=== PATIENT | male | born 1935 | race American Indian/Alaskan Native ===

== ENCOUNTER 2017-10-04 10:46 | Day surgery (SDC) | payer MEDICARE ==
[2017-10-04] MEDS ORDERED: ANCEF/STERILE WATER 2 GM/20 ML 2 GM/20 ML SYRINGE IV NR (11:00)
[2017-10-04] MEDS ORDERED: NEOSPORIN GU IR ONE (11:52)
[2017-10-04] MEDS ORDERED: METHYLENE BLUE ONE (11:52)
--- NOTE | 2017-10-04 12:13 | Anesthesia Consultation ---
Anesthesia Consult and Med Hx Date of service: 10/04/17 - Airway Anesthetic Teeth Evaluation: Poor ROM Head & Neck: Adequate Mental/Hyoid Distance: Adequate Mallampati Class: Class II Intubation Access Assessment: Probably Good - Pulmonary Exam CTA: Yes - Cardiac Exam Cardiac Exam: RRR - Pre-Operative Health Status ASA Pre-Surgery Classification: ASA3 Proposed Anesthetic Plan: General - Pulmonary Hx Smoking: Yes (OCC LIGHT SMOKER) Hx Sleep Apnea: No (VERONICA PRE SCREEN LOW RISK) - Cardiovascular System Hx Hypertension: No - Central Nervous System Hx Seizures: Yes (DAILY MEDS-UNKNOWN DATE OF LAST SEIZURE) Hx Psychiatric Problems: Yes - Hematic Hx Anemia: Yes - Other Systems Hx Cancer: No
--- NOTE | 2017-10-04 12:14 | Anesthesia Day of Surgery ---
Anesthesia Day of Surgery - Day of Surgery Patient Examined: Yes Patient H&P Reviewed: Yes Patient is NPO: Yes
[2017-10-04] MEDS ORDERED: NACL BACTERIOSTATIC INFILTRATI ONE (12:43)
[2017-10-04] MEDS ORDERED: NACL 0.9% 1000 ML 1,000 ML IV SCH (13:00)
[2017-10-04] MEDS ORDERED: TRIPLE ANTIBIOTIC TP ONE ×2 (13:29→15:16)
[2017-10-04] MEDS ORDERED: XYLOCAINE 1% 20 mL ONE (13:50)
[2017-10-04] MEDS ORDERED: MARCAINE 0.5% 0 ML INFILTRATI ONE (13:50)
[2017-10-04] MEDS ORDERED: DIPRIVAN 10 MG/ML IV ONE ×2 (13:52→14:32)
[2017-10-04] MEDS ORDERED: XYLOCAINE MPF 2% ONE (13:52)
[2017-10-04] MEDS ORDERED: WATER FOR IRRIG STERILE IR ONE ×2 (15:16→15:17)
[2017-10-04 16:48] VITALS: BP 172/76
--- NOTE | 2017-10-04 20:40 | Operative Report ---
PREOPERATIVE DIAGNOSES: Urinary retention, neurogenic bladder. POSTOPERATIVE DIAGNOSES: Urinary retention, neurogenic bladder. PROCEDURE: Cystoscopy, insertion of suprapubic cystostomy. SURGEON: Ritchie Humphries MD ANESTHESIA: General. FINDINGS: This is a gentleman with chronic retention. He is weak. He has a neurogenic bladder. He is 82. He now presents for suprapubic tube. All the risks and complications were discussed. DESCRIPTION OF PROCEDURE: The patient was brought to the operating room and placed on the operating table. Following induction of mild sedation and mild anesthesia, placed in lithotomy position, prepped and draped in usual sterile fashion. He was placed in mild Trendelenburg. Cystoscopy showed a wide open bladder neck. The Lows[place] was palpated right at the level of pubic symphysis below an incision. We were right on the skin. An incision was made the Lowsley came through and a 20-[place] Hernandez was placed in the bladder. The patient tolerated the procedure well. No significant complications. It was secured with 2 sutures of silk and brought to recovery in stable condition. JOB# [id number] IESHA/JESSICA
--- NOTE | 2017-10-06 07:36 | Fluoroscopy Report ---
FLUOROSCOPY CYSTOGRAM STATIC, ONE VIEW History: Urine retention. Findings: Fluoroscopy was provided by radiology during cystogram by urology. A single AP fluoroscopic image was captured which demonstrates a normal-appearing bladder filled with contrast. No extravasation, reflux or filling defect is detected. Please correlate with the procedural report by Dr. Humphries. Impression: Unremarkable cystogram.
== END 2017-10-04 16:42 | disposition home or self-care (01) ==
LOC: OR 10:46
PROVIDERS: ATTEND Urology
DX: N40.1 Benign prostatic hyperplasia with lower urinary tract symptoms (principal); R33.8 Other retention of urine; N31.9 Neuromuscular dysfunction of bladder, unspecified; K21.9 Gastro-esophageal reflux disease without esophagitis; M19.90 Unspecified osteoarthritis, unspecified site; G40.909 Epilepsy, unspecified, not intractable, without status epilepticus; F17.200 Nicotine dependence, unspecified, uncomplicated; Z90.49 Acquired absence of other specified parts of digestive tract
CPT/HCPCS: 51040; 74430; A4217; J0690; J2704; J7030; Q9967; A6250; Q9968

== ENCOUNTER 2018-07-31 17:13 | Emergency (ER) | payer MEDICARE ==
[2018-07-31 17:43] VITALS: BP 131/63
== END 2018-07-31 19:30 | disposition left against medical advice (07) ==
LOC: ED 17:13
DX: Z46.6 Encounter for fitting and adjustment of urinary device (principal); Z53.21 Procedure and treatment not carried out due to patient leaving prior to being seen by health care provider